=== PATIENT | female | born 1985 | race Caucasian/White ===

== ENCOUNTER 2021-01-03 09:36 | Emergency (ER) | payer MEDICAID ==
[~2021-01-03] VITALS: Ht 157.5 cm; Wt 53.6 kg
[~2021-01-03 09:36] MED LIST: BETAMETHASONE D0.053 TP
[2021-01-03 10:47] LABS: COLLECTION METHOD CLEAN CATCH
[2021-01-03 10:51] LABS: BASO # 0.1 (0.0-0.2); EOS # 0.2 (0.0-0.7); EOS % 2.1 % (0-4.0); GRAN # 4.7 (1.4-6.5); GRAN % 66.9 % (42.2-75.2); HEMATOCRIT 38.4 % (37.0-47.0); HEMOGLOBIN 13.1 g/dl (12.5-16.0); LYMPH # 1.6 (1.2-3.4); LYMPH % 22.3 % (20.0-51.0); MEAN CELL VOLUME 91 fl (80.0-100.0); MEAN CORPUSCULAR HEMOGLOBIN 31 pg (27.0-31.0); MEAN CORPUSCULAR HGB CONC 34 g/dl (33.0-37.0); MEAN PLATELET VOLUME 10.4 fl (7.4-10.4); MONO # 0.5 (0.1-0.6); MONO % 7.3 % (1.7-9.3); PLATELET COUNT 265 K/mm3 (130-400); RED BLOOD COUNT 4.23 M/mm3 (4.10-5.30)
[2021-01-03 10:55] LABS: MUCOUS Present /lpf; PH 7 (5-8); URINE APPEARANCE Hazy; URINE BACTERIA None Seen /hpf; URINE BILIRUBIN Negative (NEGATIVE); URINE BLOOD Negative (NEGATIVE); URINE COLOR Yellow; URINE GLUCOSE Negative (NEGATIVE); URINE KETONE Negative (NEGATIVE); URINE LEUKOCYTE ESTERASE Negative (NEGATIVE); URINE NITRATE Negative (NEGATIVE); URINE PROTEIN(semi-quant) Negative (NEGATIVE); URINE RBC 0-2 /hpf; URINE UROBILINOGEN Negative (NEGATIVE)
[2021-01-03 11:04] LABS: ALANINE AMINOTRANSFERASE 15 U/L (4-34); ALBUMIN 4.4 gm/dL (3.5-5.0); ALKALINE PHOSPHATASE 62 U/L (50-136); ANION GAP 7 mmol/L (7-16); AST,SGOT 22 U/L (15-37); BILIRUBIN,TOTAL 0.5 mg/dL (0.0-1.0); BLOOD UREA NITROGEN 12 mg/dL (7-17); CALCIUM 9.4 mg/dL (8.4-10.2); CARBON DIOXIDE 29 mmol/L (22-30); CHLORIDE 105 mmol/L (98-107); CREATININE, serum 0.63 (0.52-1.25); GLUCOSE 89 mg/dL (74-106); LIPASE 70 U/L (23-300); POTASSIUM 4.5 mmol/L (3.4-5.0); SODIUM 141 mmol/L (137-145); TOTAL PROTEIN 7.5 gm/dL (6.4-8.2)
[2021-01-03 11:05] LABS: C-REACTIVE PROTEIN < 0.5 mg/dL (0.0-0.9)
[2021-01-03 13:03] VITALS: BP 137/68
[2021-01-03 13:20] VITALS: PULSE 76
== END 2021-01-03 13:20 | disposition home or self-care (01) ==
LOC: COL.ER 09:36
PROVIDERS: Nurse Practitioner Primary Care
DX: R10.31 Right lower quadrant pain (principal); R11.0 Nausea; Z32.02 Encounter for pregnancy test, result negative
CPT/HCPCS: J1885; J2405; J7030

== ENCOUNTER → 2021-10-21 | Outpatient (CLI) | payer MEDICAID | LOC: COL.RAD 11:10 | DX: M25.562 Pain in left knee (principal); M25.462 Effusion, left knee ==

== ENCOUNTER 2021-11-30 14:18 | Emergency (ER) | payer MEDICAID ==
[~2021-11-30] VITALS: Ht 160 cm; Wt 60.0 kg
[2021-11-30 14:34] VITALS: TEMP 97.9
[2021-11-30 15:46] LABS: BASO # 0.1 K/mm3 (0.0-0.2); BASO % 0.6 % (0.0-2.0); EOS # 0.2 K/mm3 (0.0-0.7); EOS % 2.4 % (0.0-4.0); GRAN # 6.1 K/mm3 (1.4-6.5); GRAN % 68.9 % (42.2-75.2); HEMATOCRIT 38.9 % (37.0-47.0); HEMOGLOBIN 13.5 g/dl (12.5-16.0); LYMPH # 1.9 K/mm3 (1.2-3.4); LYMPH % 21.2 % (20.0-51.0); MEAN CELL VOLUME 88 fl (80.0-100.0); MEAN CORPUSCULAR HEMOGLOBIN 31 pg (27-31); MEAN CORPUSCULAR HGB CONC 35 g/dl (33.0-37.0); MEAN PLATELET VOLUME 10.1 fl (7.4-10.4); MONO # 0.6 K/mm3 (0.1-0.6); MONO % 6.7 % (1.7-9.3); PLATELET COUNT 273 K/mm3 (130-400); RED BLOOD COUNT 4.43 M/mm3 (4.10-5.30); REDCELL DISTRIBUTION WIDTH-CV 11.9 % (11.5-14.5)
[2021-11-30 15:54] LABS: COLLECTION METHOD CLEAN CATCH
[2021-11-30 16:04] LABS: MUCOUS Present (NOT PRESENT); SQUAMOUS EPITHELIAL 0-2 /hpf (0-10); URINE BACTERIA Rare /hpf (NONE SEEN); URINE RBC >50 /hpf (0-2)
[2021-11-30 16:07] LABS: PH 6 (5-8); URINE APPEARANCE Hazy (CLEAR/HAZY); URINE COLOR Straw (YELLOW)
[2021-11-30 16:08] LABS: URINE GLUCOSE Negative (NEGATIVE); URINE KETONE Negative (NEGATIVE); URINE PROTEIN(semi-quant) 1+ (NEGATIVE)
[2021-11-30 16:09] LABS: URINE BLOOD 3+ (NEGATIVE); URINE NITRATE Negative (NEGATIVE)
[2021-11-30 16:11] LABS: BILIRUBIN,TOTAL 0.4 mg/dL (0.2-1.2); C-REACTIVE PROTEIN 0.32 mg/dL (0.00-0.50); CALCIUM 9.4 mg/dL (8.4-10.2); CREATININE, serum 0.71 mg/dL (0.57-1.11); POTASSIUM 3.9 mmol/L (3.5-4.5); TOTAL PROTEIN 7.6 gm/dL (6.2-8.1)
[2021-11-30 17:50] VITALS: BP 115/68; PULSE 59
== END 2021-11-30 17:50 | disposition home or self-care (01) ==
LOC: COL.ER 14:18
PROVIDERS: Emergency Medicine
DX: R10.31 Right lower quadrant pain (principal); R10.11 Right upper quadrant pain; Z32.02 Encounter for pregnancy test, result negative
CPT/HCPCS: J1885; J2405; J3010; J7030; Q9967

== ENCOUNTER 2022-07-15 20:04 | Emergency (ER) | payer MEDICAID ==
[~2022-07-15] VITALS: Ht 157.5 cm; Wt 61.4 kg
[2022-07-15 20:08] VITALS: TEMP 98.1
[2022-07-15 20:26] LABS: BASO # 0.1 K/mm3 (0.0-0.2); BASO % 0.6 % (0.0-2.0); EOS # 0.4 K/mm3 (0.0-0.7); EOS % 2.9 % (0.0-4.0); GRAN # 8.4 K/mm3 (1.4-6.5); GRAN % 66.7 % (42.2-75.2); HEMOGLOBIN 13.9 g/dl (12.5-16.0); LYMPH # 3.1 K/mm3 (1.2-3.4); LYMPH % 24.7 % (20.0-51.0); MEAN CELL VOLUME 87 fl (80.0-100.0); MEAN CORPUSCULAR HEMOGLOBIN 31 pg (27-31); MEAN CORPUSCULAR HGB CONC 36 g/dl (33.0-37.0); MEAN PLATELET VOLUME 10.4 fl (7.4-10.4); MONO # 0.6 K/mm3 (0.1-0.6); MONO % 4.8 % (1.7-9.3); PLATELET COUNT 288 K/mm3 (130-400); RED BLOOD COUNT 4.49 M/mm3 (4.10-5.30); REDCELL DISTRIBUTION WIDTH-CV 11.9 % (11.5-14.5)
[2022-07-15 20:41] LABS: ALBUMIN 4.1 gm/dL (3.5-5.0); BILIRUBIN,TOTAL 0.3 mg/dL (0.2-1.2); C-REACTIVE PROTEIN 0.16 mg/dL (0.00-0.50); CALCIUM 9.3 mg/dL (8.4-10.2); CREATININE, serum 0.77 mg/dL (0.57-1.11); TOTAL PROTEIN 7.6 gm/dL (6.2-8.1)
[2022-07-15 21:32] LABS: COLLECTION METHOD CLEAN CATCH
[2022-07-15 21:52] LABS: MUCOUS Present (NOT PRESENT); SQUAMOUS EPITHELIAL 0-2 /hpf (0-10); URINE APPEARANCE Clear (CLEAR/HAZY); URINE BACTERIA Rare /hpf (NONE SEEN); URINE BLOOD Negative (NEGATIVE); URINE COLOR Yellow (YELLOW); URINE GLUCOSE Negative (NEGATIVE); URINE KETONE Negative (NEGATIVE); URINE NITRATE Negative (NEGATIVE); URINE PROTEIN(semi-quant) Negative (NEGATIVE); URINE RBC 0-2 /hpf (0-2); URINE UROBILINOGEN 0.2 E.U/dL (0.2-1.0)
[2022-07-15 23:55] VITALS: BP 117/79; PULSE 60
== END 2022-07-15 23:55 | disposition home or self-care (01) ==
LOC: COL.ER 20:04
PROVIDERS: Nurse Practitioner
DX: N83.201 Unspecified ovarian cyst, right side (principal); D72.829 Elevated white blood cell count, unspecified
CPT/HCPCS: J1885; J2405; J7030; Q9967